=== PATIENT | female | born 1955 | race Caucasian/White ===

== ENCOUNTER → 2016-09-13 | Outpatient (CLI) | payer OTHER | LOC: FIMAGING 10:09 → EDSTATUS 10:10 | PROVIDERS: ATTEND Orthopaedic Surgery Orthopaedic Surgery of the Spine | DX: Z98.1 Arthrodesis status (principal) ==

== ENCOUNTER 2016-09-20 05:31 | Inpatient (IN) | payer OTHER ==
--- NOTE | 2016-09-19 17:20 | GHP ---
[f rep st] PREOP HISTORY AND PHYSICAL DATE OF ADMISSION: 09/20/2016 HISTORY: The patient is a pleasant 61-year-old woman who [facility]. She states at the age of 10, she was diagnosed with scoliosis, but there is no family hi story. She has had a very long history of chronic low back pain and bilateral lower extremity sympt oms. Her initial surgery was in 2012 for a spondylolisthesis with spinal stenosis and scoliosis. S he underwent a transforaminal lumbar interbody fusion, laminectomy, posterior fusion with instrument ation L3-L5. The surgery gave her good relief for about a year and a half and then her symptoms beg an to worsen. 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 In December of 2013, she under went a 2nd surgery which was a revision of the nonunion in addition to an L5-S1 transforaminal lumba r interbody fusion and an instrumentation of L3-S1. Again, she did well for a year and a half. Now her symptoms have gradually worsened. She has bilateral left greater than right lower extremity pa in, tingling and numbness, as well as low back pain. On a 1-10 scale, her daily pain is a 9. Treat ments have been numerous, including physical therapy, pain medication, anti-inflammatories, and a ba ck brace. She denies any loss of bowel or bladder control. SOCIAL HISTORY: Negative for tobacco. Negative for alcohol use. The patient is a recent . FAMILY HISTORY: Diabetes mellitus and cancer. PAST MEDICAL HISTORY: Breast cancer, bipolar disorder, hypothyroidism, and hypercholesterolemia. PAST SURGICAL HISTORY: Total knee arthroplasty, breast lumpectomy, the aforementioned L3-5 lumbar f usion and instrumentation followed by revision and add-on at L5-S1 posteriorly. DRUG ALLERGIES: None. MEDICATIONS: Seroquel, Xanax, Lamictal, vitamin D3, Vicodin, oxycodone, OxyContin, Synthroid, and l ovastatin. PHYSICAL EXAM: VITAL SIGNS: Blood pressure is 128/82. CARDIAC: Regular rate and rhythm without d etectable murmur, rub, or gallop. LUNGS: Clear to auscultation. ABDOMEN: Benign. NEUROLOGIC: H er gait is normal. Strength of bilateral lower extremities is 5/5 throughout. Light touch is dimin ished in the left lateral leg. Patellar and Achilles reflexes are 1/4. Achilles reflexes are absen t. Straight leg raising is negative x2. Lumbar spine shows a well-healed scar. She is tender to p alpation over bilateral sciatic notches. Pain is clearly worsened with forward flexion and extensio n. Toes are downgoing on Babinski exam bilaterally. She has no evidence of footdrop and no clonus bilaterally. RADIOGRAPHIC STUDIES: Plain films, MRI, and CT scan were all reviewed. Patient has a transforamina l lumbar interbody fusion from L3-S1. There is posterior instrumentation from L3-S1. There is bila teral S1 pedicle screw lucency with clear-cut nonunion at L5-S1. IMPRESSION: 1. 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 2. Four years status post L3-L5 transforaminal lumbar interbody fusion with posterior fusion and in strumentation and 2-1/2 years status post revision surgery L3-S1. PLAN: The patient has a nonunion which is symptomatic at L5-S1. She has chronic daily back pain an d bilateral lower extremity pain. Potential risks, benefits, possible complications have been thoro ughly discussed with the patient including but not limited to dural tear with CSF leak, meningitis, nerve root injury, partial or complete paralysis, infection, need for further surgery, DVT, PE, pneu monia, stroke, heart attack, hemorrhage, blindness, and . Surgery will be in the form of a rev ision posterior fusion posterolaterally, L5-S1 revision posterior instrumentation, followed by an L5 -S1 transperitoneal diskectomy, removal of PEEK cages, and arthrodesis with instrumentation. The asuncion rivera's questions have been answered thoroughly. She will be n.p.o. after midnight tonight. /[id number]/MODL
[2016-09-20] MEDS ORDERED: ceFAZolin 2 GM/DEXTROSE 100 ML IV ONE (06:00)
[2016-09-20] MEDS ORDERED: GENTAMICIN 80 MG/NACL 100 ML IV ONE (06:00)
[2016-09-20] MEDS ORDERED: LIDOCAINE 1% 2 ML INJ ONE (06:22)
[2016-09-20] MEDS ORDERED: BUPIVACAINE 0.25% 30 ML SDV ONE (06:45)
[2016-09-20] MEDS ORDERED: THROMBIN (BOVINE) 20,000 UNIT VIAL TP ONE (06:45)
[2016-09-20] MEDS ORDERED: morphINE PF 5 MG/10 ML INJ ONE (06:48)
[2016-09-20] MEDS ORDERED: methylPREDNISolone SOD SUCC 125 MG/2 ML VIAL ONE (06:48)
[2016-09-20] MEDS ORDERED: fentaNYL 100 MCG/2 ML INJ ONE ×3 (06:48→07:05)
[2016-09-20] MEDS ORDERED: BACITRACIN 50,000 UNITS/10 ML SYR IRR ONE (06:49)
[2016-09-20] MEDS ORDERED: AVITENE POWDER 1 GM JAR TP ONE (06:49)
[2016-09-20] MEDS ORDERED: PROPOFOL/EMULSION 500 MG/50 ML BOTTLE IV ONE ×2 (07:05→07:13)
[2016-09-20] MEDS ORDERED: ALBUMIN 5% 250 ML BOTTLE IV ONE (07:10)
[2016-09-20] MEDS ORDERED: DEXMEDETOMIDINE HCL 200 MCG/2 ML VIAL IV ONE (07:10)
[2016-09-20] MEDS ORDERED: MIDAZOLAM 2 MG/2 ML VIAL ONE (07:14)
[2016-09-20] MEDS ORDERED: CITRATE DEXTROSE SOLN 500 ML BAG ONE ×2 (07:18→08:12)
[2016-09-20] MEDS ORDERED: MAGNESIUM HYDROXIDE 30 ML UDCUP PO PRN (07:30)
[2016-09-20] MEDS ORDERED: PROCHLORPERAZINE MALEATE 10 MG TAB PO PRN (07:30)
[2016-09-20] MEDS ORDERED: DIAZEPAM 10 MG/2 ML SYR IVP PRN (07:30)
[2016-09-20] MEDS ORDERED: diphenhydrAMINE 25 MG CAP PO PRN ×2 (07:30)
[2016-09-20] MEDS ORDERED: ONDANSETRON 4 MG/2 ML VIAL IVP PRN (07:30)
[2016-09-20] MEDS ORDERED: LACTULOSE 20 GM/30 ML UDCUP PO PRN (07:30)
[2016-09-20] MEDS ORDERED: TRANEXAMIC ACID IV ONE (07:30)
[2016-09-20] MEDS ORDERED: DIAZEPAM 5 MG TAB PO PRN (07:30)
[2016-09-20] MEDS ORDERED: ONDANSETRON DISINTEGRATING 4 MG TAB PO PRN (07:30)
[2016-09-20] MEDS ORDERED: NS IV ONE (07:30)
[2016-09-20] MEDS ORDERED: KETAMINE 100 MG/10 ML SYR ONE (07:50)
[2016-09-20] MEDS ORDERED: DIAZEPAM 10 MG/2 ML SYR ONE (08:02)
[2016-09-20] MEDS ORDERED: ceFAZolin 1 GM VIAL ONE (08:12)
[2016-09-20] MEDS ORDERED: LIDOCAINE 2% 5 ML SDV ONE (08:12)
[2016-09-20] MEDS ORDERED: DEXAMETHASONE 4 MG/ML VIAL ONE (08:12)
[2016-09-20] MEDS ORDERED: RANITIDINE 50 MG/2 ML VIAL ONE (08:12)
[2016-09-20] MEDS ORDERED: ROCURONIUM 50 MG/5 ML VIAL ONE ×2 (08:12→10:55)
[2016-09-20] MEDS ORDERED: METOCLOPRAMIDE 10 MG/2 ML VIAL ONE (08:12)
[2016-09-20] MEDS ORDERED: epHEDrine SULFATE 10 MG/ML SYR ONE ×2 (08:59→12:20)
[2016-09-20] MEDS ORDERED: NON-FORMULARY NEW DRUG (Omeprazole [Omeprazole] 40 MG) PO SCH (09:00)
[2016-09-20] MEDS ORDERED: LR 1,000 ML IV ONE (10:54)
[2016-09-20] MEDS ORDERED: LIDOCAINE 1% 5 ML SDV ID PRN (10:54)
[2016-09-20] MEDS ORDERED: SUGAMMADEX SODIUM 200 MG/2 ML VIAL IVP ONE (11:32)
[2016-09-20] MEDS ORDERED: ONDANSETRON 4 MG/2 ML VIAL ONE (11:53)
[2016-09-20] MEDS ORDERED: ALPRAZolam 1 MG TAB PO SCH (12:00)
--- NOTE | 2016-09-20 12:52 | POSTOPPROG ---
Post Op Note Date of Operation: 09/20/16 Surgeon: Alondra Johnson Store Keeper: Em Lo SA Anesthesiologist: MD Denisse Anesthesia: GET(General Endotracheal) Pre-op Diagnosis: Non union L5-S1 s/p L3-S1 fusion/Inst Post-op Diagnosis: same Indication: chronic lumbar pain and bilat LE pain Procedure: Revision post fusion/Instr L3-S1 and Ant L5-S1 discectomy/fusion/Inst Findings: Non union anteriorly L5-S1, Non union L3-S1 post. Inf/Abcess present in the surg proc area at time of surgery?: No Depth: Deep Incisional (Fascial) EBL: 150 cc Total fluids administered: 1200 cc Complications: None. No changes in neuro monitoring (SSEP, MEP, EMG) Drains: Jamie Mata
[2016-09-20] MEDS ORDERED: morphINE PF 5 MG/10 ML INJ IT ONE (13:30)
[2016-09-20] MEDS ORDERED: fentaNYL 100 MCG/2 ML INJ IT ONE (13:30)
[2016-09-20] MEDS: lamoTRIgine 100 MG TAB PO SCH ×2 (13:42→21:33)
[2016-09-20] MEDS: FAMOTIDINE 20 MG/NACL 50 ML IV SCH ×2 (13:42→21:39)
[2016-09-20] MEDS: PANTOPRAZOLE SODIUM 40 MG TAB PO SCH (13:43)
[2016-09-20] MEDS: SENNOSIDES/DOCUSATE SODIUM TAB PO SCH ×2 (13:43→21:49)
[2016-09-20] MEDS: DICYCLOMINE 10 MG CAP PO SCH ×3 (13:44→21:48)
--- NOTE | 2016-09-20 14:57 | GOP ---
[f rep st] OPERATIVE REPORT DATE OF OPERATION: 09/20/2016 SURGEON: Mitchell Wynn MD MORTGAGE SPECIALIST: CHRISTIANE Castillo ANESTHESIOLOGIST: Myrtle Salcedo MD PREOPERATIVE DIAGNOSIS: Spinal instability. POSTOPERATIVE DIAGNOSIS: Spinal instability. PROCEDURE PERFORMED: Anterior spine exposure, L5-S1. FINDINGS: DESCRIPTION OF PROCEDURE: Patient was in the operating room under general endotracheal anesthesia b rafael Salcedo. She was placed in the supine position, prepped and draped in usual sterile fashion. A low Pfannenstiel-like incision was made and carried down through the subcutaneous tissue. Rectus sheath was incised. Subfascial dissection was done on the rectus muscle above and below this incisi on. The peritoneum was then opened in the midline under direct vision. The abdomen was entered. T he bowel was packed away with laparotomy pads, and using the Omni retractor, the retroperitoneum was exposed. The L5-S1 area was dissected free, opening the retroperitoneal tissue. The sacral vessel s were multiply hemoclipped and divided. Dissection extended up to the iliac veins, which were then retracted superiorly and laterally with the Omni retractor, exposing a good portion of the L5 body and underneath for the L5-S1 disk space. Position was confirmed radiographically, and the case was then turned over to Dr. Rodriguez for the anterior spinal fusion which will be dictated separately . After completion of her portion of the procedure, the wound was irrigated, and laparotomy pads we re removed. The abdomen was then closed in layers using 0 Vicryl for the peritoneum and muscular la yers, #1 PDS running suture for the rectus sheath, 3-0 Vicryl for the subcu, and skin mica for th e skin. The area of the incision was infiltrated with 0.5% Marcaine. She tolerated the procedure q uite well. Blood loss from my portion of the procedure was less than 10 cc. There were no complica tions. /[id number]/MODL
[2016-09-20] MEDS: DEXMEDETOMIDINE HCL 400 MCG in NS 100 ML IV SCH (15:31)
[2016-09-20] MEDS: D5W 1/2 NS W/ 20 KCl/L 1,000 ML IV SCH (15:39)
[2016-09-20] MEDS ORDERED: NON-FORMULARY NEW DRUG (Lovastatin [Lovastatin] 40 MG) PO SCH (21:00)
[2016-09-20] MEDS: PRAVASTATIN SODIUM 40 MG TAB PO SCH (21:47)
[2016-09-20] MEDS: PRAZOSIN HCL 1 MG CAP PO SCH (21:49)
[2016-09-20] MEDS: QUEtiapine FUMARATE 100 MG TAB PO PRN (22:08)
[2016-09-20] MEDS: ALPRAZolam 1 MG TAB PO PRN (22:18)
[2016-09-21] MEDS: D5W 1/2 NS W/ 20 KCl/L 1,000 ML IV SCH ×2 (00:22→22:50)
[2016-09-21 04:58] LABS: HEMATOCRIT 33.9 % (38.0-47.0); HEMOGLOBIN 10.8 g/dL (12.6-16.3)
[2016-09-21] MEDS: LEVOTHYROXINE 88 MCG TAB PO SCH (06:17)
[2016-09-21] MEDS: DICYCLOMINE 10 MG CAP PO SCH ×4 (06:27→20:49)
--- NOTE | 2016-09-21 06:50 | GOP ---
[f rep st] OPERATIVE REPORT DATE OF OPERATION: 09/20/2016 SURGEON: Alondra Rodriguez MD CLERK OF COURT: Carlos Lo SA. ANESTHESIA: Myrtle Salcedo MD, general endotracheal intubation. PREOPERATIVE DIAGNOSIS: 1. Nonunion, L5-S1, with bilateral S1 pedicle screw loosening. 2. Four years status post L3-L5 TLIF and posterior fusion with instrumentation. 3. Two and a half years status post revision lumbar surgery, L3-S1 posteriorly. 4. Chronic low back pain and bilateral lower extremity radiculitis. POSTOPERATIVE DIAGNOSIS: 1. Nonunion, L5-S1, with bilateral S1 pedicle screw loosening. 2. Four years status post L3-L5 TLIF and posterior fusion with instrumentation. 3. Two and a half years status post revision lumbar surgery, L3-S1 posteriorly. 4. Chronic low back pain and bilateral lower extremity radiculitis. PROCEDURE PERFORMED: 1. Removal of posterior L3-S1 segmental instrumentation. 2. Exploration of L3-S1 posterolateral arthrodesis. 3. Revision, L3-4, L4-5, L5-S1 posterolateral arthrodeses. 4. Revision L3-S1 posterior segmental instrumentation with spinal elements and instrumentation. 5. Placement of 0.3 mg of intrathecal Duramorph and 25 mcg of intrathecal fentanyl for postoperativ e pain control. FINDINGS: Bilateral, significant S1 pedicle screw loosening, nonunion L3-4, L4-5, and L5-S1 postero laterally. There were no signs of infection. INDICATIONS: The patient is a pleasant 61-year-old woman, who has had a long history of low back pr oblems. Approximately 4 years ago, the patient underwent an L3-L5 TLIF with posterior fusion and in strumentation. This was done by another surgeon, and she did well for awhile, but then her symptoms returned. She was found to have a nonunion at L4-5. She underwent a second surgery again by [facility] surgery, which was a revision surgery from L3-L5 and included the L5-S1 level, due to increased n ew degenerative changes. Again, the patient did well postoperatively, but then after a year and a h longterm or so, began having increasing pain again. On workup, she has been found to have a nonunion at L5-S1 with bilateral S1 pedicle screw loosening. She has tried numerous nonoperative treatments inc luding a back brace, pain medication, physical therapy, and anti-inflammatories. She has elected to undergo surgery. No guarantees were given in regard to surgical outcome. Potential risks, benefit s, and possible complications have been thoroughly discussed including, but not limited to, a dural tear with CSF leak, meningitis, nerve root injury, partial or complete paralysis, infection, nonunio n, breakage or pullout of internal fixation, junctional breakdown, DVT, PE, pneumonia, stroke, heart attack, hemorrhage, blindness, and . No guarantees were given in regard to her outcome, and a ll questions were answered thoroughly. DESCRIPTION OF PROCEDURE: After obtaining both written and verbal consent from the patient, she was brought to the operating room, where she underwent a general endotracheal intubation. Patient rece ived IV Ancef 2 g. Glaser catheter was placed. Patient was rolled to the prone position on the Ruslan son table. All 4 extremities were padded well. Neural monitoring was connected and baseline potent ials including somatosensory-evoked potentials, motor-evoked potentials, and EMGs were set up and pe rformed. A time-out was performed for the entire operating room team, confirming patient's name, da te of , planned surgical procedure, including levels, antibiotics given, and allergies to medic ations. The lumbar spine was prepped and draped in the normal sterile fashion. A midline longitudinal poste rior incision was made through the previous scar. This incision was brought down through skin and s ubcutaneous tissues, into the overlying dorsal fascia. Paraspinal muscles were stripped in a subper iosteal fashion bilaterally. The L3-S1 previously placed posterior segmental instrumentation, which was the Nuvasive instrumentation, was identified, and all scar tissue was removed such that we were able to get lateral to the pedicle screws to explore the posterolateral arthrodesis. The locking c aps were removed from L3-S1 bilaterally. Then, the titanium rods were removed and the pedicle screw s were stimulated. All screws stimulated to 20 milliamps bilaterally L3-S1. They were all visualiz ed. Bilateral S1 screws were clearly loose. All screws were removed at L3-S1 bilaterally. Then, t he posterolateral arthrodesis was explored. It was found that not only did the patient have a jenaro nonunion at L5-S1, but unfortunately, she also had a paucity of bone graft and lack of fusion at L3 -4 and L4-5 in the posterolateral area. There was some bone, but it was clearly not a solid fusion at any of the 3 levels. Therefore, due to the nonunion at all 3 levels, revision posterior instrume ntation at all levels was performed. Based on the screw sizes that were removed, I increased the sc rew diameter 1 mm at each level, and screw lengths were maintained at the same lengths, with the exc eption of L3. I was able to get 5 mm and longer screws in, and these were 6.5 x 50 mm at L3. Prior to placement; however, a ball-tipped probe was used to palpate the previous screw sites, and these all had good bone circumferentially around them and were placed appropriately. The O-arm was also s et up for guidance. Prior to placement of new instrumentation, a 5 mm round bur was then used to de corticate the lateral aspect of the lamina, the facet joints, and the transverse processes from L3-S 1. Size large bone morphogenic protein was prepared and placed posterolaterally, and this was augme nted with crushed cancellous bone graft mixed with demineralized bone matrix. Then, pedicle screws were placed, as mentioned, from L3-S1 bilaterally. The left L3 with 6.5 x 50. The left L4 screw wa s 5.5 x 40, as a new medial hole was identified and palpated with good bone around it. The left L5 screw was 8.5 x 45 mm and left S1 was 7.5 x 45 mm. The left L3 screw stimulated to 11 milliamps. T he left L4 stimulated to 12 milliamps. The left L5 stimulated to 17 milliamps, and S1 was 20 millia mps. Then, the right screws were placed in a similar fashion. Again, the ball-tipped probe was use d to palpate the entire depth of the previous screw sites, and all had good bone around them. On th e right at L3, a 6.5 x 50 mm screw was placed and stimulated to 16 milliamps. On the right at L4, a 5.5 x 45 mm screw was placed and stimulated to 9 milliamps, and then was repositioned and stimulate d to 18 milliamps which is well above a normal expectation. Right L5 screw placement was 8.5 x 45 m m and stimulated to 14 milliamps, and the right S1 screw placement was 7.5 x 45 mm and stimulated to 18 milliamps. These all had good purchase. Therefore, a 90 mm pre-cut, pre-contoured titanium imndy was placed into the screw heads and locked in with 8 locking caps. These were torqued and counter torqued per the beauty culturist's recommendation. A CT scan spin had been performed using the O-arm an d as mentioned, the left L4 screw was repositioned and a new hole had been placed, and this was in g ood position. Hemostasis was obtained with bipolar cautery and thrombin-soaked Gelfoam and a 10 fla t ROBERT drain was placed deep to the fascial layer and sewn in with a 2-0 nylon suture at the skin. 0. 3 mg of intrathecal Duramorph and 25 mcg of intrathecal fentanyl were placed in the subarachnoid spa ce at the L3-4 level for postoperative pain control. The wound was closed using a #1 Vicryl, 0 Vicr yl, and skin mica. A sterile dressing was applied. Patient was then rolled to the supine positi on on the Jamie table for the anterior portion of the surgery which was planned to be the L5-S1 le parminder to remove the PEEK cage and to perform a diskectomy and fusion with instrumentation. Estimated blood loss for this portion of the surgery, approximately 100 cc. COMPLICATIONS: None. /[id number]/MODL
--- NOTE | 2016-09-21 07:20 | GOP ---
[f rep st] OPERATIVE REPORT DATE OF OPERATION: 09/20/2016 SURGEON: Alondra Rodriguez MD LEAD LOADER: Carlos Lo SA ANESTHESIA: General endotracheal intubation. ANESTHESIOLOGIST: Myrtle Salcedo MD PREOPERATIVE DIAGNOSIS: 1. Nonunion L5-S1. 2. Four years status post L3-L5 transforaminal lumbar interbody fusion with posterior fusion instru mentation by another surgeon. 3. Two and half years status post revision lumbar surgery L3-S1 with Polyetheretherketone cages at all levels. 4. Chronic low back pain. 5. Bilateral lower extremity radiculitis. POSTOPERATIVE DIAGNOSIS: 1. Nonunion L5-S1. 2. Four years status post L3-L5 transforaminal lumbar interbody fusion with posterior fusion instru mentation by another surgeon. 3. Two and half years status post revision lumbar surgery L3-S1 with Polyetheretherketone cages at all levels. 4. Chronic low back pain. 5. Bilateral lower extremity radiculitis. PROCEDURE PERFORMED: 1. L5-S1 transperitoneal approach to the lumbosacral spine, performed by Dr. Wynn. 2. L5-S1 complete diskectomy with removal of previous Polyetheretherketone cage. 3. L5-S1 anterior interbody arthrodesis with spinal elements Magnum Polyetheretherketone implant. FINDINGS: Intact, but completely loose L5-S1. PEEK cage. No evidence of infection. Obvious nonun ion of L5-S1. ESTIMATED BLOOD LOSS: For this portion of the surgery only approximately 50 cc. INDICATIONS: The patient is a pleasant 61-year-old woman who has undergone 2 prior surgeries by [facility] for chronic low back pain and bilateral lower extremity symptoms. The 1st was an L3- L5 TLIF with posterior fusion instrumentation which became a nonunion at L4-5. The patient had a re vision surgery which then also included L5-S1. She has now gone on to a complete nonunion at L5-S1 with loosening of the S1 pedicle screws. She has just undergone the posterior portion of the surger y and anterior portion was indicated to remove the PEEK cage and to try and obtain a strong arthrode sis at L5-S1. DESCRIPTION OF PROCEDURE: After consent was obtained and the patient was brought to the operating r oom, she had undergone an anesthetic general for the posterior part of the surgery. This was dictat ed under separate cover. She was then rolled to the supine position on the Jamie table. All 4 ex tremities were padded well. Neuro monitoring again was connected. The patient received further IV antibiotics. The abdomen and pubic area was prepped and draped in the normal sterile fashion. Dr. Wynn performed an L5-S1 transperitoneal approach which will be dictated under separate cover. Once the approach and the iliac veins were dissected and protected and the Omni retractor was placed, an x-ray showed that the spinal needle that had been placed by Dr. Wynn was indeed at the L5-S1 corre ct level. I then, under loupe magnification, created an annulotomy at L5-S1 anteriorly into the dis c and then a Kunz was used to loosen the disc from the endplates. The anterior portion of the disk was removed with a rongeur and then the PEEK cage that had been previously placed via transforaminal lumbar interbody approach was identified. It was intact, but it was loose and I was able to remove it using an osteotome and curette, as well as Kunz. It was removed in total. There was no bone gr owth through into the endplates superiorly or inferiorly. There was a fibrous nonunion that was santiago en down with a curved curette, followed by a 5 mm round 5 mm barrel shaped bur. The 5 mm barrel sha ped bur was then used to further decorticate the vertebral endplates and to get back to good bleedin g bone and to remove the lateral osteophytes. Trials of the magnum spinal elements stand-alone PEEK cage were utilized. The best trial fit was a 16 mm with 12 mm lordosis. Therefore, a 30 x 25 x 16 mm 12 degree lordosed magnum stand-alone ALIF PEEK cage was tamped into position after placing bone morphogenic protein into the center of it and augmented with demineralized bone matrix and crushed cancellous bone graft. Once this was prepared the PEEK cage was tamped into position at L5-S1 with excellent purchase. Then, the starting awl was used to prepare both the L5 and the S1 screw sites through the integrated Magnum PEEK cage. Then, a 5.5 x 30 mm screw was placed in the PEEK cage into the S1 vertebral body . The interlocking screw was tightened down in both of the screws and had good purchase. An AP and a lateral fluoroscopic view showed good position of the stand-alone PEEK cage and the associated ve rtebral body screws. The lap sponges were then removed. There was no evidence of bleeding. The il iac veins, aorta and vena cava, all were in good condition. Dr. Wynn then performed the closure of this portion of the surgery, which will also be dictated under separate cover. CO-SURGEON: Mitchell Wynn MD. COMPLICATIONS: None. POSTOPERATIVE PLAN: Close neurologic observation, close airway observation, PT, OT, pain control. /[id number]/MODL
[2016-09-21 07:27] LABS: ANION GAP 7 mEq/L (8-16); CALCIUM 9.7 mg/dL (8.5-10.4); CARBON DIOXIDE 26 mEq/l (22-31); CHLORIDE 106 mEq/L (97-110); CREATININE 0.7 mg/dL (0.6-1.0); GLOMERULAR FILTRATION RATE > 60; GLUCOSE 149 mg/dL (70-100); POTASSIUM 5.7 mEq/L (3.5-5.2); SODIUM 139 mEq/L (134-144)
[2016-09-21] MEDS: ALPRAZolam 1 MG TAB PO PRN (08:43)
[2016-09-21] MEDS: FAMOTIDINE 20 MG/NACL 50 ML IV SCH ×2 (08:46→20:54)
[2016-09-21] MEDS: lamoTRIgine 100 MG TAB PO SCH ×2 (08:47→20:54)
[2016-09-21] MEDS: PANTOPRAZOLE SODIUM 40 MG TAB PO SCH (08:47)
[2016-09-21] MEDS: SENNOSIDES/DOCUSATE SODIUM TAB PO SCH ×2 (09:00→20:50)
[2016-09-21] MEDS: HYDROmorphONE/DILAUDID 1 MG/ML SYR IVP PRN (10:24)
[2016-09-21] MEDS: HYDROCODONE/APAP 10/325 TAB PO PRN (14:36)
--- NOTE | 2016-09-21 16:56 | SOAPPROG ---
SOAP Progress Note Assessment/Plan: Assessment: post op day 1 s/p Revision L3-S1 post fusion/instrum and Ant L5-S1 removal of PEEK cage w/ fusion and Inst. Pt doing faily well. Suspect duramorph is still functioning. Ileus: cont NPO Plan: 09/21/16 16:53 Cont PT and OT. Cont iv abx. Cont strict NPO given ileus. Subjective: Pt complains of Right lateral thigh pain. Thirsty. Objective: Vital Signs Temp Pulse Resp BP Pulse Ox 36.6 C 70 10 L 91/50 L 99 09/21/16 16:01 09/21/16 16:01 09/21/16 16:01 09/21/16 16:01 09/21/16 16:01 Laboratory Results 09/21/16 04:50 09/21/16 06:35 09/20/16 09/21/16 09/22/16 05:59 05:59 05:59 Intake Total 2446.7 Output Total 1265 330 Balance 1181.7 -330 BLE motor 5/5 except R Quad 4/5. Dominique's negative x2. ICD10 Worksheet Patient Problems: Problems Problem Status Onset Pseudoarthrosis of lumbar spine Acute - ICD10 Problem Qualifiers (1) Pseudoarthrosis of lumbar spine
[2016-09-21] MEDS: DEXMEDETOMIDINE HCL 400 MCG in NS 100 ML IV SCH (20:26)
[2016-09-21] MEDS: PRAVASTATIN SODIUM 40 MG TAB PO SCH (20:50)
[2016-09-21] MEDS: PRAZOSIN HCL 1 MG CAP PO SCH (20:50)
[2016-09-21] MEDS: ALPRAZolam 1 MG TAB PO SCH (20:54)
[2016-09-21] MEDS ORDERED: ALPRAZolam 0.5 MG TAB PO SCH ×2 (21:00)
[2016-09-22] MEDS: HYDROCODONE/APAP 10/325 TAB PO PRN ×2 (03:20→16:35)
[2016-09-22] MEDS: LEVOTHYROXINE 88 MCG TAB PO SCH (06:28)
[2016-09-22] MEDS: D5W 1/2 NS W/ 20 KCl/L 1,000 ML IV SCH ×2 (06:32→18:09)
[2016-09-22] MEDS: DICYCLOMINE 10 MG CAP PO SCH ×4 (06:47→20:27)
[2016-09-22] MEDS: HYDROmorphONE/DILAUDID 1 MG/ML SYR IVP PRN (08:02)
[2016-09-22] MEDS: SENNOSIDES/DOCUSATE SODIUM TAB PO SCH ×2 (08:05→20:28)
[2016-09-22] MEDS: FAMOTIDINE 20 MG/NACL 50 ML IV SCH ×2 (08:05→20:29)
[2016-09-22] MEDS: ALPRAZolam 1 MG TAB PO SCH ×2 (08:05→20:27)
[2016-09-22] MEDS: PANTOPRAZOLE SODIUM 40 MG TAB PO SCH (08:05)
[2016-09-22] MEDS: lamoTRIgine 100 MG TAB PO SCH ×2 (08:05→20:31)
--- NOTE | 2016-09-22 10:23 | GCON ---
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 HISTORY OF PRESENT ILLNESS: The patient is a 61-year-old white female with a past medical history i ncluding breast cancer, bipolar disorder, hypothyroidism, and hypercholesterolemia. She was admitte d on 09/20 for back pain. She underwent revision post fusion with instrumentation of L3-S1 and ante rior L5-S1 diskectomy fusion. She has done well postoperatively but is complaining of some abdomina l pain and has not yet had a bowel movement. States her back pain is reasonably well tolerated. Th ere is no chest pain, pleuritic-type chest pain or anginal equivalent. No cough or productive sputu m. She denies any dyspnea. PAST MEDICAL HISTORY: Again, significant for breast cancer, hypothyroidism, hypercholesterolemia, b ipolar disorder. ALLERGIES: No known to medications. MEDICATIONS: Include Seroquel, Lamictal, Xanax, vitamin D, Vicodin, oxycodone, OxyContin, Synthroid , lovastatin. SOCIAL HISTORY: No history of tobacco use. No history of alcohol use. She is recently . PHYSICAL EXAM: VITAL SIGNS: Blood pressure is 96/52, pulse is 84, respirations 21, temperature is 36.9, oxygen saturation 96% on 1.5 L. GENERAL: She is a well-developed 61-year-old white female wh o is resting comfortably with mild abdominal pain. HEENT: Eyes: VANDANA. EOMI. Throat shows no shanna thema or tonsillar hypertrophy. NECK: Supple. There is no cervical adenopathy. HEART: Regular r ate and rhythm without murmurs, rubs, or gallops. LUNGS: Clear to auscultation. No wheeze or rhon chi. ABDOMEN: Soft. Bowel sounds are diminished. EXTREMITIES: No clubbing, cyanosis, or edema. LABORATORY DATA: Sodium 139, potassium 5.7, chloride 106, CO2 26, BUN 16, creatinine 0.7, glucose 1 49. IMPRESSION: 1. Status post extensive back surgery with diskectomy and fusion. 2. Possible ileus. Patient is currently passing gas. 3. History of breast cancer. 4. Bipolar disorder. 5. Hypothyroidism. RECOMMENDATIONS: 1. Continue adequate pain control. 2. Bowel protocol. 3. Consider abdominal x-rays. 4. DVT and PE prophylaxis. 5. Stress ulcer prophylaxis. /[id number]/MODL
--- NOTE | 2016-09-22 13:03 | SOAPPROG ---
SOAP Progress Note Assessment/Plan: Assessment: post op day 1 s/p Revision L3-S1 post fusion/instrum and Ant L5-S1 removal of PEEK cage w/ fusion and Inst. Pt doing faily well. Suspect duramorph is still functioning. Ileus: cont NPO Plan: 09/21/16 16:53 Cont PT and OT. Cont iv abx. Cont strict NPO given ileus. 09/22/16 13:Post op day 2, s/p L5-S1 Ant fusion and rev. L3-S1 post fusion/ instru. Pt oversedated. Stop presidex. Stop Iv narcotics. Cont PT and OT. Cont iv abx. Subjective: Pt states R thigh pain the same. Objective: Vital Signs Temp Pulse Resp BP Pulse Ox 36.9 C 90 14 121/68 H 99 09/22/16 07:50 09/22/16 12:00 09/22/16 12:00 09/22/16 12:00 09/22/16 12:00 Laboratory Results 09/21/16 04:50 09/21/16 06:35 09/21/16 09/22/16 09/23/16 05:59 05:59 05:59 Intake Total 2446.7 2659.6 Output Total 1265 700 Balance 1181.7 1959.6 No change in neuro vascular exam BLE. Dominique's negative x Drain functioning properly. Abdomen:no bowel sounds. Soft ICD10 Worksheet Patient Problems: Problems Problem Status Onset Pseudoarthrosis of lumbar spine Acute - ICD10 Problem Qualifiers (1) Pseudoarthrosis of lumbar spine
[2016-09-22] MEDS: BISACODYL 10 MG SUPP PR PRN (14:10)
[2016-09-22] MEDS: PRAVASTATIN SODIUM 40 MG TAB PO SCH (20:31)
[2016-09-22] MEDS: PRAZOSIN HCL 1 MG CAP PO SCH (20:32)
[2016-09-23] MEDS: D5W 1/2 NS W/ 20 KCl/L 1,000 ML IV SCH ×2 (04:49→21:18)
[2016-09-23] MEDS: DICYCLOMINE 10 MG CAP PO SCH ×4 (05:11→21:04)
[2016-09-23] MEDS: HYDROCODONE/APAP 10/325 TAB PO PRN (05:49)
[2016-09-23] MEDS: LEVOTHYROXINE 88 MCG TAB PO SCH (05:49)
[2016-09-23] MEDS: lamoTRIgine 100 MG TAB PO SCH ×2 (07:37→21:22)
[2016-09-23] MEDS: FAMOTIDINE 20 MG/NACL 50 ML IV SCH ×2 (07:37→21:43)
[2016-09-23] MEDS: SENNOSIDES/DOCUSATE SODIUM TAB PO SCH ×2 (07:38→21:23)
[2016-09-23] MEDS: ACETAMINOPHEN 325 MG TAB PO PRN (07:38)
[2016-09-23] MEDS: PANTOPRAZOLE SODIUM 40 MG TAB PO SCH (07:39)
[2016-09-23] MEDS: ALPRAZolam 1 MG TAB PO SCH ×2 (07:39→21:24)
[2016-09-23] MEDS ORDERED: DIAZEPAM 5 MG TAB PO PRN (12:52)
--- NOTE | 2016-09-23 13:03 | SOAPPROG ---
SOAP Progress Note Assessment/Plan: Assessment: post op day 1 s/p Revision L3-S1 post fusion/instrum and Ant L5-S1 removal of PEEK cage w/ fusion and Inst. Pt doing faily well. Suspect duramorph is still functioning. Ileus: cont NPO Plan: 09/21/16 16:53 Cont PT and OT. Cont iv abx. Cont strict NPO given ileus. 09/22/16 13:Post op day 2, s/p L5-S1 Ant fusion and rev. L3-S1 post fusion/ instru. Pt oversedated. Stop presidex. Stop Iv narcotics. Cont PT and OT. Cont iv abx. 09/23/16 13:00 post op day 3. Pt oversedated again. Possibly due to valium in middle of night. Pt improving. I recommend SNF. Pt desires to go to [facility]. Will aim for transfer on Monday. Subjective: Pt states she showered and walked. is tired now. No appetite. Pain control adequate. Objective: Vital Signs Temp Pulse Resp BP Pulse Ox 36.8 C 99 14 108/55 L 100 09/23/16 07:44 09/23/16 07:44 09/23/16 07:44 09/23/16 07:44 09/23/16 07:44 Laboratory Results 09/21/16 04:50 09/21/16 06:35 09/22/16 09/23/16 09/24/16 05:59 05:59 05:59 Intake Total 2659.6 2376 Output Total 700 2125 140 Balance 1959.6 251 -140 BLE motor 5/5 except R Quad 4+/5. Homans negative x 2. Few distant bowel sounds. Drain functioning properly. ICD10 Worksheet Patient Problems: Problems Problem Status Onset Pseudoarthrosis of lumbar spine Acute - ICD10 Problem Qualifiers (1) Pseudoarthrosis of lumbar spine
[2016-09-23] MEDS: PRAVASTATIN SODIUM 40 MG TAB PO SCH (21:22)
[2016-09-23] MEDS: PRAZOSIN HCL 1 MG CAP PO SCH (22:38)
[2016-09-24] MEDS: LEVOTHYROXINE 88 MCG TAB PO SCH (04:49)
[2016-09-24] MEDS: DICYCLOMINE 10 MG CAP PO SCH ×4 (06:35→21:46)
[2016-09-24] MEDS: PANTOPRAZOLE SODIUM 40 MG TAB PO SCH (08:13)
[2016-09-24] MEDS: ALPRAZolam 1 MG TAB PO SCH ×2 (08:13→21:37)
[2016-09-24] MEDS: lamoTRIgine 100 MG TAB PO SCH ×2 (08:13→21:36)
[2016-09-24] MEDS: FAMOTIDINE 20 MG/NACL 50 ML IV SCH ×2 (08:14→21:41)
[2016-09-24] MEDS: SENNOSIDES/DOCUSATE SODIUM TAB PO SCH ×2 (08:14→21:38)
--- NOTE | 2016-09-24 10:50 | SOAPPROG ---
SOAP Progress Note Assessment/Plan: Assessment: post op day 1 s/p Revision L3-S1 post fusion/instrum and Ant L5-S1 removal of PEEK cage w/ fusion and Inst. Pt doing faily well. Suspect duramorph is still functioning. Ileus: cont NPO Plan: 09/21/16 16:53 Cont PT and OT. Cont iv abx. Cont strict NPO given ileus. 09/22/16 13:Post op day 2, s/p L5-S1 Ant fusion and rev. L3-S1 post fusion/ instru. Pt oversedated. Stop presidex. Stop Iv narcotics. Cont PT and OT. Cont iv abx. 09/23/16 13:00 post op day 3. Pt oversedated again. Possibly due to valium in middle of night. Pt improving. I recommend SNF. Pt desires to go to [facility]. Will aim for transfer on Monday. 09/24/16 10:47 post op day 4. Pt more oversedated than in the past. Will hold all narcotics until she becomes more alert. Then will decrease oxycontin to 20mg bid. Encourage po. Ileus: will give suppository again. Start iv Reglan. Cont PT and OT. SNF possibly tomorrow but more likely Monday. Subjective: Pt falls asleep talking to me. Objective: Vital Signs Temp Pulse Resp BP Pulse Ox 36.6 C 94 17 96/57 L 95 09/24/16 07:54 09/24/16 07:54 09/24/16 07:54 09/24/16 07:54 09/24/16 07:54 Laboratory Results 09/21/16 04:50 09/21/16 06:35 09/23/16 09/24/16 09/25/16 05:59 05:59 05:59 Intake Total 1486 1450 Output Total 2125 760 Balance 251 690 Lumbar wound clean and dry. Erythema from tape. No signs of infxn. Moves BUE and BLE spontaneously. Very few bowel sounds. ICD10 Worksheet Patient Problems: Problems Problem Status Onset Pseudoarthrosis of lumbar spine Acute - ICD10 Problem Qualifiers (1) Pseudoarthrosis of lumbar spine
--- NOTE | 2016-09-24 10:51 | SOAPPROG ---
SOAP Progress Note Assessment/Plan: Assessment: post op day 1 s/p Revision L3-S1 post fusion/instrum and Ant L5-S1 removal of PEEK cage w/ fusion and Inst. Pt doing faily well. Suspect duramorph is still functioning. Ileus: cont NPO Plan: 09/21/16 16:53 Cont PT and OT. Cont iv abx. Cont strict NPO given ileus. 09/22/16 13:Post op day 2, s/p L5-S1 Ant fusion and rev. L3-S1 post fusion/ instru. Pt oversedated. Stop presidex. Stop Iv narcotics. Cont PT and OT. Cont iv abx. 09/23/16 13:00 post op day 3. Pt oversedated again. Possibly due to valium in middle of night. Pt improving. I recommend SNF. Pt desires to go to [facility]. Will aim for transfer on Monday. 09/24/16 10:47 post op day 4. Pt more oversedated than in the past. Will hold all narcotics until she becomes more alert. Then will decrease oxycontin to 20mg bid. Encourage po. Ileus: will give suppository again. Start iv Reglan. Cont PT and OT. SNF possibly tomorrow but more likely Monday. 09/24/16 10:51 Drain removed without difficulty and intact. Objective: Vital Signs Temp Pulse Resp BP Pulse Ox 36.6 C 94 17 96/57 L 95 09/24/16 07:54 09/24/16 07:54 09/24/16 07:54 09/24/16 07:54 09/24/16 07:54 Laboratory Results 09/21/16 04:50 09/21/16 06:35 09/23/16 09/24/16 09/25/16 05:59 05:59 05:59 Intake Total 8263 4824 Output Total 5592 760 Balance 251 690 ICD10 Worksheet Patient Problems: Problems Problem Status Onset Pseudoarthrosis of lumbar spine Acute - ICD10 Problem Qualifiers (1) Pseudoarthrosis of lumbar spine
[2016-09-24] MEDS: METOCLOPRAMIDE 10 MG/2 ML VIAL IVP SCH ×3 (11:41→23:26)
[2016-09-24] MEDS: D5W 1/2 NS 1,000 ML IV SCH ×2 (11:43→21:47)
[2016-09-24] MEDS: BISACODYL 10 MG SUPP PR PRN (11:52)
[2016-09-24] MEDS: POLYETHYLENE GLYCOL 3350 17 GM PKT PO PRN (21:37)
[2016-09-24] MEDS: PRAVASTATIN SODIUM 40 MG TAB PO SCH (21:38)
[2016-09-24] MEDS: PRAZOSIN HCL 1 MG CAP PO SCH (21:46)
[2016-09-25] MEDS: HYDROCODONE/APAP 10/325 TAB PO PRN ×2 (00:29→04:16)
[2016-09-25] MEDS: ACETAMINOPHEN 325 MG TAB PO PRN ×3 (00:30→18:27)
[2016-09-25] MEDS: LEVOTHYROXINE 88 MCG TAB PO SCH (04:16)
[2016-09-25] MEDS: DICYCLOMINE 10 MG CAP PO SCH ×4 (05:57→21:37)
[2016-09-25] MEDS: METOCLOPRAMIDE 10 MG/2 ML VIAL IVP SCH ×3 (05:57→17:12)
[2016-09-25] MEDS: lamoTRIgine 100 MG TAB PO SCH ×2 (08:48→21:30)
[2016-09-25] MEDS: PANTOPRAZOLE SODIUM 40 MG TAB PO SCH (08:49)
[2016-09-25] MEDS: SENNOSIDES/DOCUSATE SODIUM TAB PO SCH ×2 (08:49→21:39)
[2016-09-25] MEDS: ALPRAZolam 1 MG TAB PO SCH ×2 (08:49→21:31)
[2016-09-25] MEDS: FAMOTIDINE 20 MG/NACL 50 ML IV SCH ×2 (08:51→21:39)
--- NOTE | 2016-09-25 09:22 | SOAPPROG ---
SOAP Progress Note Assessment/Plan: Assessment: post op day 1 s/p Revision L3-S1 post fusion/instrum and Ant L5-S1 removal of PEEK cage w/ fusion and Inst. Pt doing faily well. Suspect duramorph is still functioning. Ileus: cont NPO Plan: 09/21/16 16:53 Cont PT and OT. Cont iv abx. Cont strict NPO given ileus. 09/22/16 13:Post op day 2, s/p L5-S1 Ant fusion and rev. L3-S1 post fusion/ instru. Pt oversedated. Stop presidex. Stop Iv narcotics. Cont PT and OT. Cont iv abx. 09/23/16 13:00 post op day 3. Pt oversedated again. Possibly due to valium in middle of night. Pt improving. I recommend SNF. Pt desires to go to [facility]. Will aim for transfer on Monday. 09/24/16 10:47 post op day 4. Pt more oversedated than in the past. Will hold all narcotics until she becomes more alert. Then will decrease oxycontin to 20mg bid. Encourage po. Ileus: will give suppository again. Start iv Reglan. Cont PT and OT. SNF possibly tomorrow but more likely Monday. 09/24/16 10:51 Drain removed without difficulty and intact. 09/25/16 09:20 post op day 5. Pt still has an ileus, despite NPO for 2-3 days, 2 suppositories, and Reglan IV. Will have Dr. Wynn or PA assess and follow w/ recommendations. Possible SNF tomorrow. Cont PT and OT. Subjective: Pt states her R lateral thigh pain is improving. Objective: Vital Signs Temp Pulse Resp BP Pulse Ox 36.6 C 78 14 96/65 L 93 09/25/16 07:18 09/25/16 07:18 09/25/16 07:18 09/25/16 07:18 09/25/16 07:18 Laboratory Results 09/21/16 04:50 09/21/16 06:35 09/24/16 09/25/16 09/26/16 05:59 05:59 05:59 Intake Total 1450 1970 Output Total 760 1050 Balance 690 920 BLE motor 5/5 except R Quad 5-/5. Dominique's negative x 2. Rare bowel sounds. Abdomen soft. Dressings changed by RN. ICD10 Worksheet Patient Problems: Problems Problem Status Onset Pseudoarthrosis of lumbar spine Acute - ICD10 Problem Qualifiers (1) Pseudoarthrosis of lumbar spine
--- NOTE | 2016-09-25 12:05 | SOAPPROG ---
SOAP Progress Note Assessment/Plan: Assessment: PT SP ANT SPINE EXPOSURE/ CONSTIPATED WITH DECREASED BM/ 2-WAY SHOWS ROCKHARD CONSTIPATION WITH SIGNS OF SBO ABD SOFT, NONTENDER/ WOUND OK IMPR: NARCOTIC INDUCED CONSTIPATION Plan:BOWELL PROTOCOL/ CONSIDER REALISTOR FOR RELIEVE( DOSE WITH pharm) 09/25/16 12:01 Objective: Vital Signs Temp Pulse Resp BP Pulse Ox 36.6 C 78 14 96/65 L 93 09/25/16 07:18 09/25/16 07:18 09/25/16 07:18 09/25/16 07:18 09/25/16 07:18 Laboratory Results 09/21/16 04:50 09/21/16 06:35 09/24/16 09/25/16 09/26/16 05:59 05:59 05:59 Intake Total 1450 1970 Output Total 760 1050 Balance 690 920 ICD10 Worksheet Patient Problems: Problems Problem Status Onset Pseudoarthrosis of lumbar spine Acute
--- NOTE | 2016-09-25 13:13 | WOCRNPDOC ---
WOCRN Advanced Assessment Note - Skin Integrity Problem, Advanced Assess Bilateral Posterior Knee Pressure Injury Dressing Type: Open to Air Exudate Amount: None Integumentary Issue Intervention: Barrier Cream Applied (provided Dimethicone Moisture Barrier cream) Linda Wound Tissue: Erythema, Non-blanching, Intact Linda Wound Swelling: None Site Odor: None Pressure Injury Stage: Stage 1 Pressure Injury Present on Admit: Yes (TEDs ) Skin Integrity Problem Comment: Patient is currently resting with TEDs and SCDs off. Thin (approx 0.2 cm), horizontal, linear erythema along intact bilateral posterior knees. Discussed options for and importance of pressure reduction/ redistribution while continuing clot prevention, with patient and with ARTIE Chávez. Positioned tilted towards left side, with pillow supporting knees.
[2016-09-25] MEDS: POLYETHYLENE GLYCOL 3350 17 GM PKT PO SCH (13:20)
[2016-09-25] MEDS ORDERED: METHYLNALTREXONE BROMIDE 12 MG/0.6 ML INJ SC ONE (13:30)
[2016-09-25] MEDS: LACTULOSE 200 GM in SODIUM CL IRRIG SOLUTION 700 ML PR SCH ×2 (16:44→22:22)
[2016-09-25] MEDS: POLYETHYLENE GLYCOL 3350 17 GM PKT PO PRN (20:04)
[2016-09-25] MEDS: OXYCODONE/APAP 5/325 TAB PO PRN (21:31)
[2016-09-25] MEDS: PRAZOSIN HCL 1 MG CAP PO SCH (21:35)
[2016-09-25] MEDS: PRAVASTATIN SODIUM 40 MG TAB PO SCH (21:38)
[2016-09-25] MEDS: QUEtiapine FUMARATE 100 MG TAB PO PRN (21:49)
[2016-09-25 23:20] VITALS: RESP 16; TEMP 98; O2SAT 95
[2016-09-26] MEDS: METOCLOPRAMIDE 10 MG/2 ML VIAL IVP SCH ×3 (01:43→13:35)
[2016-09-26] MEDS: ALPRAZolam 1 MG TAB PO SCH (11:11)
[2016-09-26] MEDS: DICYCLOMINE 10 MG CAP PO SCH ×2 (11:11→13:35)
[2016-09-26] MEDS: LACTULOSE 200 GM in SODIUM CL IRRIG SOLUTION 700 ML PR SCH (11:11)
[2016-09-26] MEDS: lamoTRIgine 100 MG TAB PO SCH (11:11)
[2016-09-26] MEDS: LEVOTHYROXINE 88 MCG TAB PO SCH (11:11)
[2016-09-26] MEDS: PANTOPRAZOLE SODIUM 40 MG TAB PO SCH (11:11)
[2016-09-26] MEDS: POLYETHYLENE GLYCOL 3350 17 GM PKT PO SCH (11:12)
[2016-09-26] MEDS: SENNOSIDES/DOCUSATE SODIUM TAB PO SCH (11:12)
[2016-09-26] MEDS: FAMOTIDINE 20 MG/NACL 50 ML IV SCH (11:16)
[2016-09-26 11:25] VITALS: BP 133/79; PULSE 91
--- NOTE | 2016-09-26 16:21 | SOAPPROG ---
SOAP Progress Note Assessment/Plan: Assessment: post op day 1 s/p Revision L3-S1 post fusion/instrum and Ant L5-S1 removal of PEEK cage w/ fusion and Inst. Pt doing faily well. Suspect duramorph is still functioning. Ileus: cont NPO Plan: 09/21/16 16:53 Cont PT and OT. Cont iv abx. Cont strict NPO given ileus. 09/22/16 13:Post op day 2, s/p L5-S1 Ant fusion and rev. L3-S1 post fusion/ instru. Pt oversedated. Stop presidex. Stop Iv narcotics. Cont PT and OT. Cont iv abx. 09/23/16 13:00 post op day 3. Pt oversedated again. Possibly due to valium in middle of night. Pt improving. I recommend SNF. Pt desires to go to [facility]. Will aim for transfer on Monday. 09/24/16 10:47 post op day 4. Pt more oversedated than in the past. Will hold all narcotics until she becomes more alert. Then will decrease oxycontin to 20mg bid. Encourage po. Ileus: will give suppository again. Start iv Reglan. Cont PT and OT. SNF possibly tomorrow but more likely Monday. 09/24/16 10:51 Drain removed without difficulty and intact. 09/25/16 09:20 post op day 5. Pt still has an ileus, despite NPO for 2-3 days, 2 suppositories, and Reglan IV. Will have Dr. Wynn or PA assess and follow w/ recommendations. Possible SNF tomorrow. Cont PT and OT. 09/26/16 16:20 post op day 6. Ready for SNF transfer. Ileus has resolved. Subjective: Pt complains of incisional pain. Objective: Vital Signs Temp Pulse Resp BP Pulse Ox 36.6 C 91 16 133/79 H 95 09/26/16 08:00 09/26/16 08:00 09/26/16 08:00 09/26/16 08:00 09/26/16 08:00 Laboratory Results 09/21/16 04:50 09/21/16 06:35 09/25/16 09/26/16 09/27/16 05:59 05:59 05:59 Intake Total 1970 550 Output Total 1050 Balance 920 550 Pt alert and oriented x 3. BLE motor 5/5 except R quad 5-/5. Dominique's negtive x 2. ICD10 Worksheet Patient Problems: Problems Problem Status Onset Pseudoarthrosis of lumbar spine Acute - ICD10 Problem Qualifiers (1) Pseudoarthrosis of lumbar spine
--- NOTE | 2016-09-26 16:29 | PDIAF ---
- Diagnosis Code Status: Full Code - Medication Management Discharge Medications: Medications to Continue on Transfer ALPRAZolam [Xanax 1 MG (*)] 1 mg PO DAILY@1200 08/15/16 [Last Taken 09/19/16] ALPRAZolam [Xanax 1 MG (*)] 2 mg PO BID 08/15/16 [Last Taken 09/20/16 05:15] Aspirin [Aspirin 81mg (*)] 81 mg PO DAILY 08/15/16 [Last Taken 09/06/16] Aspirin/Acetaminophen/Caffeine [Excedrin Migraine Geltab] 1 each PO DAILY PRN [Last Taken 09/06/16] Cholecalciferol (Vitamin D3) [Vitamin D3] 1,000 unit PO DAILY 08/15/16 [Last Taken 09/06/16] Dicyclomine [Bentyl 10 MG (*)] 10 - 20 mg PO QID 08/15/16 [Last Taken 08/23/16] Ergocalciferol [Vitamin D2 (*)] 50,000 unit PO DO 08/15/16 [Last Taken 09/06/16] Hydrocodone/Acetaminophen [Hydrocodon-Acetaminophn 10-325] 1 tab PO BID [Last Taken 09/13/16] Levothyroxine [Synthroid 88 mcg (*)] 88 mcg PO DAILY06 08/15/16 [Last Taken 08:00] Lovastatin 40 mg PO HS 08/15/16 [Last Taken 09/19/16 08:00] Multivitamins [Multivitamin (*)] 1 each PO DAILY 08/15/16 [Last Taken 09/06/16] Omeprazole 40 mg PO DAILY 08/15/16 [Last Taken 09/19/16 08:00] Prazosin HCl 4 mg PO HS 08/15/16 [Last Taken 09/18/16 22:00] QUEtiapine FUMARATE [Seroquel 100 mg (*)] 100 mg PO HS PRN 08/15/16 [Last Taken 09/19/16 19:00] QUEtiapine FUMARATE [Seroquel 25 mg (*)] 25 - 75 mg PO HS PRN 08/15/16 [Last Taken 09/18/16] lamoTRIgine [LamICTAL 100 MG (*)] 200 mg PO BID 08/15/16 [Last Taken 09/20/16 05 :15] oxyCODONE CR [Oxycontin] 10 mg PO HS PRN 08/15/16 [Last Taken 08/30/16] oxyCODONE IR [Oxycodone Ir (*)] 7.5 - 15 mg PO Q8 PRN 08/15/16 [Last Taken 08/30] Discharge Medications: Refer to the Discharge Home Medication list for PRN reason. - Orders Diet Recommendation: no restrictions on diet Diet Texture: Regular Texture Diet - Follow Up Care Current Providers and Referrals: NONE *PRIMARY CARE P,. [Primary Care Provider] -
--- NOTE | 2016-09-26 16:36 | PDIAF ---
- Diagnosis Code Status: Full Code - Medication Management Discharge Medications: Medications to Continue on Transfer ALPRAZolam [Xanax 1 MG (*)] 1 mg PO DAILY@1200 08/15/16 [Last Taken 09/19/16] ALPRAZolam [Xanax 1 MG (*)] 2 mg PO BID 08/15/16 [Last Taken 09/20/16 05:15] Cholecalciferol (Vitamin D3) [Vitamin D3] 1,000 unit PO DAILY 08/15/16 [Last Taken 09/06/16] Dicyclomine [Bentyl 10 MG (*)] 10 - 20 mg PO QID 08/15/16 [Last Taken 08/23/16] Ergocalciferol [Vitamin D2 (*)] 50,000 unit PO DO 08/15/16 [Last Taken 09/06/16] Levothyroxine [Synthroid 88 mcg (*)] 88 mcg PO DAILY06 08/15/16 [Last Taken 08:00] Lovastatin 40 mg PO HS 08/15/16 [Last Taken 09/19/16 08:00] Omeprazole 40 mg PO DAILY 08/15/16 [Last Taken 09/19/16 08:00] Prazosin HCl 4 mg PO HS 08/15/16 [Last Taken 09/18/16 22:00] QUEtiapine FUMARATE [Seroquel 100 mg (*)] 100 mg PO HS PRN 08/15/16 [Last Taken 09/19/16 19:00] QUEtiapine FUMARATE [Seroquel 25 mg (*)] 25 - 75 mg PO HS PRN 08/15/16 [Last Taken 09/18/16] lamoTRIgine [LamICTAL 100 MG (*)] 200 mg PO BID 08/15/16 [Last Taken 09/20/16 05 :15] Discharge Medications: Refer to the Discharge Home Medication list for PRN reason. PICC Care - Routine: N/A - Orders Services needed: Registered Nurse, Master Plastic Block Boiler Reliner, Physical Therapy, Occupational Therapy Home Care Face to Face: 09-26-16 Diet Recommendation: no restrictions on diet Diet Texture: Regular Texture Diet David Stockings Discontinue Date: 10-06-16 Wound Care Instructions: Daily dry dressing change to anterior and posterior lumbar wounds. NO ointment. Activity/Weight Bearing Restrictions: Full wt. bearing. NO bending, lifting, twisting. Equipment: Wear back brace at all times except during showers. Additional: follow up appt w 10/06/16 - Follow Up Care Current Providers and Referrals: NONE *PRIMARY CARE P,. [Primary Care Provider] -
[2016-09-26] MEDS: OXYCODONE/APAP 5/325 TAB PO PRN (16:47)
--- NOTE | 2016-09-26 17:25 | GDS ---
[f rep st] TRANSFER SUMMARY [facility] HOSPITAL COURSE: The patient is a pleasant 61-year-old woman who has undergone 2 prior surgeries by other surgeons. Her pain has returned, both low back pain and bilateral lower extremity symptoms. 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 She elected to undergo surgery after nonoperative treat ment failed. On the day of admission, she was brought to the operating room, and under a general anesthetic, carolin ortiz a revision posterior surgery which was L3-S1 posterolateral arthrodesis for a nonunion at all 3 levels and findings included bilateral S1 screw loosening as well, and she underwent posterior rev ision instrumentation at L3-S1. Then the second portion of the procedure included an anterior L5-S1 removal of her PEEK cage and anterior interbody arthrodesis and instrumentation with a stand-alone cage from [employer]. Dr. Wynn performed the transperitoneal approach to the L5-S1 level. Intraoperative neuro monitoring remained unchanged. Postoperatively, the patient had an expected ileus for a number of days requiring suppositories, augustina mas and Reglan. She was kept n.p.o. for a few days and then finally advanced to clear liquids and t o a regular diet. Pain control was initially with 40 mg of OxyContin b.i.d. and oxycodone and Vicodin p.r.n., however, patient became oversedated for number of days and then ultimately we backed off and her pain medica tion on transfer will be OxyContin 20 mg p.o. q.12 hours scheduled, as well as Percocet and Vicodin on a p.r.n. basis per discharge meds. She needs to refrain from all anti-inflammatories. Her drain was removed in the hospital and antibiotics were kept going until the drain was removed. There were no signs of infection. Patient was seen by both PT and OT and improved significantly, but is not ready for discharge to [facility] as she would not be able to take care of herself. She is being transferred to [facility] for advanced continued daily physical therapy, occupational therapy and nursing for pain medic ation. Patient did have some mild right quadriceps weakness postoperatively, which is improved, but still s lightly symptomatic. We are watching this closely. The patient is being transferred in satisfactory condition. She was taking a regular diet and needs to be encouraged to drink liquids frequently. She needs to see Physical Therapy daily and Occupational Therapy. She needs a daily dry dressing ch hernan to the anterior wound at the L5-S1 level, lower abdomen and posteriorly daily. She needs to we ar her back brace at all times except for during showers. Prior to shower she should take off her b race and Nursing should remove her anterior and posterior lumbar dressings since that the wounds do get wet, but then they need to be dried off prior to placing a new dry dressing. She needs to avoid all anti-inflammatories including aspirin. Patient has a followup appointment in my office on October 06, 2016, at 10:00 a.m. Please call my office if you are concerned about any potential complicatio ns prior to that time. Patient is being discharged and transferred to [facility]. /[id number]/MODL
== END 2016-09-26 17:36 | DRG 454 ==
LOC: F3E 05:31 → F2N 15:20 → F3N 09-23 15:48
PROVIDERS: ADMIT Orthopaedic Surgery Orthopaedic Surgery of the Spine; ATTEND Orthopaedic Surgery Orthopaedic Surgery of the Spine
PROC: 0SP004Z Removal of Internal Fixation Device from Lumbar Vertebral Joint, Open Approach (ICD-10-PCS; principal; 2016-09-20 07:15)
PROC: 3E0U0GB Introduction of Recombinant Bone Morphogenetic Protein into Joints, Open Approach (ICD-10-PCS; principal; 2016-09-20 07:15)
PROC: 0SG1071 Fusion of 2 or more Lumbar Vertebral Joints with Autologous Tissue Substitute, Posterior Approach, Posterior Column, Open Approach (ICD-10-PCS; principal; 2016-09-20 07:15)
PROC: 0SP30AZ Removal of Interbody Fusion Device from Lumbosacral Joint, Open Approach (ICD-10-PCS; principal; 2016-09-20 07:15)
PROC: 0SB40ZZ Excision of Lumbosacral Disc, Open Approach (ICD-10-PCS; principal; 2016-09-20 07:15)
PROC: 0SG30A0 Fusion of Lumbosacral Joint with Interbody Fusion Device, Anterior Approach, Anterior Column, Open Approach (ICD-10-PCS; principal; 2016-09-20 07:15)
PROC: 0SG3071 Fusion of Lumbosacral Joint with Autologous Tissue Substitute, Posterior Approach, Posterior Column, Open Approach (ICD-10-PCS; principal; 2016-09-20 07:15)
DX: T84.296A Other mechanical complication of internal fixation device of vertebrae, initial encounter (principal); M96.0 Pseudarthrosis after fusion or arthrodesis; K56.7 Ileus, unspecified; E03.9 Hypothyroidism, unspecified; E78.00 Pure hypercholesterolemia, unspecified; F31.9 Bipolar disorder, unspecified; Z85.3 Personal history of malignant neoplasm of breast
CPT/HCPCS: 97116-GP; 97161-GP; 97165-GO; 97532-GO; 97535-GO; C1713; C1762; G8978-GP-CK; G8979-GP-CI; G8987-GO-CL; G8988-GO-CI; J0690; J1100; J1170; J1580; J2212; J2250; J2274; J2405; J2704; J2765; J2780; J3010; J7060; P9041

== ENCOUNTER → 2016-10-28 | Outpatient (CLI) | payer OTHER | LOC: FIMAGING 14:45 | PROVIDERS: ATTEND Orthopaedic Surgery Orthopaedic Surgery of the Spine | DX: Z47.89 Encounter for other orthopedic aftercare (principal); Z98.1 Arthrodesis status ==

== ENCOUNTER → 2016-12-14 | Outpatient (CLI) | payer OTHER ==
[~2016-12-14] MED LIST: IOPAMIDOL (ISOVUE-300) 100 ML BTL ONE
== END ==
LOC: FIMAGING 16:29
PROVIDERS: ATTEND Surgery
DX: R10.31 Right lower quadrant pain (principal); K76.89 Other specified diseases of liver
CPT/HCPCS: Q9967

== ENCOUNTER → 2017-01-02 | Outpatient (CLI) | payer OTHER | LOC: FLAB 08:53 | PROVIDERS: ATTEND Orthopaedic Surgery Orthopaedic Surgery of the Spine | DX: M96.1 Postlaminectomy syndrome, not elsewhere classified (principal); M47.895 Other spondylosis, thoracolumbar region ==

== ENCOUNTER → 2017-03-10 | Outpatient (CLI) | payer OTHER | LOC: FIMAGING 11:31 | PROVIDERS: ATTEND Orthopaedic Surgery Orthopaedic Surgery of the Spine | DX: Z09 Encounter for follow-up examination after completed treatment for conditions other than malignant neoplasm (principal); Z98.1 Arthrodesis status; M41.86 Other forms of scoliosis, lumbar region ==